=== PATIENT | male | born 1945 | race Caucasian/White ===

== ENCOUNTER 2019-06-10 05:43 | Inpatient (IN) | payer OTHER, BC ==
[2019-06-07 10:46] LABS: BASOPHILS # (AUTO) 0.1 K/uL (0.0-0.2); BASOPHILS % (AUTO) 0.9 % (0.0-2.0); EOSINOPHILS # (AUTO) 0.1 K/uL (0.0-0.4); EOSINOPHILS % (AUTO) 1.9 % (0.0-4.0); HEMATOCRIT 46.1 % (36-54); HEMOGLOBIN 15.2 g/dL (14.0-18.0); LYMPHOCYTES # (AUTO) 1.3 K/uL (1.0-5.5); LYMPHOCYTES % (AUTO) 22.5 % (20.5-51.5); MEAN CORPUSCULAR HEMOGLOBIN 29 pg (27-31); MEAN CORPUSCULAR HGB CONC 33 % (32-36); MEAN CORPUSCULAR VOLUME 89 fL (79.0-98.0); MONOCYTES # (AUTO) 0.5 K/uL (0.0-1.0); MONOCYTES % (AUTO) 8.4 % (1.7-9.3); NEUTROPHILS % (AUTO) 66.3 % (40.0-70.0); PLATELET COUNT (AUTO) 216 K/uL (130-430); RED BLOOD CELL COUNT(AUTO) 5.19 MIL/uL (4.2-6.2); RED CELL DISTRIBUTION WIDTH 13.1 % (9.0-15.0)
[2019-06-07 11:06] LABS: ANION GAP 5 (5-15); CALCIUM 9.5 mg/dL (8.4-11.0); CHLORIDE 100 mmol/L (98-107); CREATININE 1.22 mg/dL (0.55-1.30); GLUCOSE 88 mg/dL (70-99); POTASSIUM 4.4 mmol/L (3.5-5.1); SODIUM SERUM 136 mmol/L (136-145); UREA NITROGEN, BLOOD 16 mg/dL (8-21)
[2019-06-07 11:07] LABS: BILIRUBIN,URINE NEGATIVE (NEGATIVE); CLARITY/URINE CLEAR (CLEAR); COLOR,URINE YELLOW (YELLOW); GLUCOSE,URINE NEGATIVE (NEGATIVE); KETONES,URINE NEGATIVE (NEGATIVE); LEUKOCYTE ESTERASE ,URINE NEGATIVE (NEGATIVE); NITRITE, URINE NEGATIVE (NEGATIVE); PH,URINE 6.5 (5.0-8.0); PROTEIN URINE NEGATIVE (NEGATIVE); UROBILINOGEN,URINE 0.2 (0.2-1.0)
[2019-06-07 11:08] LABS: BLOOD, URINE TRACE (NEGATIVE)
[2019-06-07 11:11] LABS: INR 0.9 (0.80-1.20); PROTHROMBIN TIME 9.5 SECS (9.5-12.5)
[2019-06-07 11:17] LABS: BACTERIA,URINE RARE /HPF (None Seen); MUCUS,URINE 1+ /LPF (None Seen); RBC,URINE 0-3 /HPF (0-3); WBC,URINE 0-3 /HPF (0-3)
[~2019-06-10] VITALS: Ht 180.3 cm; Wt 95.3 kg
[~2019-06-10 05:43] MED LIST: PRAV40TA PO
[2019-06-10] MEDS ORDERED: ACETAMINOPHEN 500 MG TABLET ONE (06:20)
[2019-06-10] MEDS ORDERED: GABAPENTIN 300 MG CAPSULE ONE (06:20)
[2019-06-10] MEDS ORDERED: CELECOXIB 200 MG CAPSULE ONE (06:20)
[2019-06-10] MEDS ORDERED: oxyCODONE HCL 10 MG TAB.ER.12H PO ONE ×2 (06:21→07:00)
[2019-06-10] MEDS ORDERED: TRANEXAMIC ACID 650 MG TABLET ONE (06:21)
[2019-06-10] MEDS ORDERED: ACETAMINOPHEN 500 MG TABLET PO ONE (07:00)
[2019-06-10] MEDS ORDERED: GABAPENTIN 300 MG CAPSULE PO ONE (07:00)
[2019-06-10] MEDS ORDERED: NACL 0.9% 1,000 ML IV ONE (07:00)
[2019-06-10] MEDS ORDERED: CELECOXIB 200 MG CAPSULE PO ONE (07:00)
[2019-06-10] MEDS ORDERED: CEFAZOLIN 2 GM IVPB PREMIX 50 ML IV ONE (07:00)
[2019-06-10] MEDS ORDERED: TRANEXAMIC ACID 650 MG TABLET PO ONE (07:00)
[2019-06-10] MEDS ORDERED: POLYMYXIN 500,000/BACIT.10,000 UNITS in NS IRR 1 L IR ONE (07:12)
[2019-06-10] MEDS ORDERED: D5/0.45 NS 1,000 ML IV ONE (07:27)
[2019-06-10] MEDS ORDERED: MORPHINE SULFATE 10 MG/ML VIAL IM PRN (07:30)
[2019-06-10] MEDS ORDERED: ACETAMINOPHEN 325 MG TABLET PO PRN (07:30)
[2019-06-10] MEDS ORDERED: BISACODYL 10 MG/SUPPOSITORY RC PRN (07:30)
[2019-06-10] MEDS ORDERED: ROPIVACAINE HCL/PF 0.2% 200 ML INJ SCH (08:37)
[2019-06-10] MEDS ORDERED: ONDANSETRON HCL 4 MG/2 ML VIAL IVP PRN ×2 (08:45)
[2019-06-10] MEDS ORDERED: NALBUPHINE HCL 10 MG/ML AMP IVP PRN ×2 (08:45)
[2019-06-10] MEDS ORDERED: DIPHENHYDRAMINE INJ 50 MG/ML VIAL IVP PRN ×2 (08:45)
[2019-06-10] MEDS ORDERED: MORPHINE SULFATE 10MG/10ML PF AMP SP SCH (08:45)
[2019-06-10] MEDS ORDERED: NALOXONE HCL 0.4 MG/ML AMP (NARCAN) IVP PRN ×2 (08:45)
[2019-06-10] MEDS ORDERED: fentaNYL CITRATE/PF 100 MCG/2 ML AMP IVP PRN ×2 (08:45)
[2019-06-10] MEDS ORDERED: KETOROLAC TROMETHAMINE 60 MG/2 ML VIAL IM PRN (08:45)
[2019-06-10] MEDS ORDERED: RIVAROXABAN 10 MG TABLET PO SCH (09:00)
[2019-06-10] MEDS ORDERED: ROPIVACAINE HCL/PF 0.2% EPIDURAL 200 ML PLAST..BAG ONE (09:35)
[2019-06-10] MEDS ORDERED: TRANEXAMIC ACID 1,000 MG/10 ML VIAL IV ONE (09:35)
[2019-06-10] MEDS ORDERED: ROPIVACAINE HCL/PF 5 MG/ML 0.5% 30 ML VIAL ONE (09:35)
[2019-06-10] MEDS ORDERED: LR 1,000 ML IV.SOLN IV ONE (09:35)
[2019-06-10] MEDS ORDERED: BUPIVACAINE /PF 0.75% 10 ML VIAL INJ ONE (09:35)
[2019-06-10] MEDS ORDERED: MIDAZOLAM HCL 5 MG/ML VIAL (VERSED) IV ONE (09:35)
[2019-06-10] MEDS ORDERED: PROPOFOL 200MG/ 20ML VIAL (DIPRIVAN) IV ONE (09:35)
[2019-06-10] MEDS ORDERED: MORPHINE SULFATE 10MG/10ML PF AMP ONE (09:35)
[2019-06-10] MEDS ORDERED: VANCOMYCIN HCL 1000 MG/VIAL IV ONE (09:35)
--- NOTE | 2019-06-10 10:30 | NUR ---
INITIAL NOTE RECEIVED PT IN BED, NO S/S OF DISTRESS OR SOB NOTED, PT HAS NO C/O PAIN AT THIS TIME, PT IN STABLE CONDITION, PY AAOX4, VERBAL. PT HAS AN IV CATHETER PATENT, NO SIGNS OF INFECTION OR INFILTRATION NOTED, SALINE LOCK. PT HAS A DRESSING ON LEFT KNEE CLEAN AND DRY, ON Q PUMP AT 8 ML/HR, PT ABLE TO MOVE TOES ON LEFT FOOT, SENSATION PRESENT, CAPILLARY REFILL LESS THAN 3 SECONDS, PULSE PALPABLE, ABLE TO WIGGLE TOES, NO PARALYSIS OR TINGLING PER PT. EDUCATED PT ON USE OF INCENTIVE SPIROMETER, PT TO USE 10 TIMES AN HOUR WHILE AWAKE, PT VERBALIZED UNDERSTANDING, PT AT 1500ML. PT HAS POLAR CARE IN PLACE, TRAPEZE FOR BED MOBILITY. BED AT LOWEST POSITION, CALL LIGHT WITHIN REACH, WILL CONTINUE TO MONITOR PT FOR ANY CHANGES, FALL AND SAFETY PRECAUTIONS IN PLACE. AT BEDSIDE. F/C DRAINING VIA GRAVITY.
[2019-06-10 10:39] VITALS: BP_SYST 124
[2019-06-10 10:42] VITALS: BP_SYST 124
[2019-06-10] MEDS: CEFAZOLIN 1 GM IVPB PREMIX 50 ML IV SCH ×2 (15:34→23:25)
[2019-06-10 16:30] VITALS: BP_SYST 124
--- NOTE | 2019-06-10 16:30 | NUR ---
ROUNDS PT IN BED, NO S/S OF DISTRESS OR SOB NOTED, PT HAS NO C/O PAIN AT THIS TIME, PT IN STABLE CONDITION, PT RESTING COMFORTABLY. WILL CONTINUE TO MONITOR PT FOR ANY CHANGES. AT BEDSIDE.
[2019-06-10] MEDS: RIVAROXABAN 10 MG TABLET PO SCH (17:32)
--- NOTE | 2019-06-10 18:15 | NUR ---
NAUSEA PT VOMITED X1, ABOUT 20CC OF YELLOWISH VOMIT, OFFERED PATIENT ZOFRAN PRN IVP FOR NAUSEA BUT PT REFUSED, PT STATED HE WANTED A SPRITE INSTEAD AND FELT BETTER, WILL CONTINUE TO MONITOR PT FOR ANY CHANGES.
--- NOTE | 2019-06-10 18:35 | NUR ---
CLOSING NOTE PT IN BED, NO S/S OF DISTRESS OR SOB NOTED, PT HAS NO C/O PAIN AT THIS TIME, PT IN STABLE CONDITION, PY AAOX4, VERBAL. PT HAS AN IV CATHETER PATENT, NO SIGNS OF INFECTION OR INFILTRATION NOTED, SALINE LOCK. PT HAS A DRESSING ON LEFT KNEE CLEAN AND DRY, ON Q PUMP AT 8 ML/HR, PT ABLE TO MOVE TOES ON LEFT FOOT, SENSATION PRESENT, CAPILLARY REFILL LESS THAN 3 SECONDS, PULSE PALPABLE, ABLE TO WIGGLE TOES, NO PARALYSIS OR TINGLING PER PT. EDUCATED PT ON USE OF INCENTIVE SPIROMETER, PT VERBALIZED UNDERSTANDING. PT HAS POLAR CARE IN PLACE, TRAPEZE FOR BED MOBILITY. BED AT LOWEST POSITION, CALL LIGHT WITHIN REACH, WILL ENDORSE CARE OF PT TO INCOMING NURSE, FALL AND SAFETY PRECAUTIONS IN PLACE. AT BEDSIDE. F/C DRAINING VIA GRAVITY.
--- NOTE | 2019-06-10 19:30 | NUR ---
Pt is fully awake, alert and oriented x4. Left knee dressing is dry and intact with Polar care in place. Neurovascular checks to BLE are WNL. CPM is on at 0 to 60 degrees and well tolerated by pt. On Q pump is infusing well in left thigh at 8ml/hr with the site dry and intact. No c/o pain, numbness or tingling sensation. Pt was instructed to use IS 10x Q 1hr WA and pt verbalized understanding. Pt's IS usage is up to 3000ml. IV site in LH is without any signs of infiltration. Rabago Cath to gravity drainage is draining clear yellowish urine. Fall and safety precautions are in place. Call light is with pt and bed alarm is on. Bed is in the lowest and locked positions. Pt was instructed to call for assistance as needed and pt verbalized understanding.
[2019-06-10 20:00] VITALS: BP_SYST 142
--- NOTE | 2019-06-10 20:00 | NUR ---
CPM machine was removed from left knee and placed on a chair in pt's room. Left leg was elevated on a pillow away from pt's left knee. Pt was instructed not to place a pillow underneath his left knee and pt verbalized understanding. Call light is with pt and bed alarm is on.
[2019-06-10] MEDS: HYDROcodone/ACETAMIN 7.5-325 MG TAB PO PRN (21:25)
--- NOTE | 2019-06-10 21:25 | NUR ---
[place] 7.5/325mg 1 tablet was given po for c/o 4/10 left knee pain. Left leg remains elevated on a pillow. On Q pump with Ropivacaine is infusing well in left thigh at 8ml/hr without any leakage noted at the site. Call light is with pt and bed alarm is on.
--- NOTE | 2019-06-10 23:00 | NUR ---
Pt is resting quietly in bed. Fall and safety precautions are in place.
--- NOTE | 2019-06-10 23:08 | NUR ---
CONSULTATION PAGED/CALLED Reason for Consultation: HOSPITALIST Person Who was Notified: MARYBETH Consulting Physician: KAYE Briseno Specialty: Ordering Physician: Harmony GALLARDO
--- NOTE | 2019-06-11 01:00 | NUR ---
Pt is not in any distress at this time. Call light is with pt and bed alarm is on. Left knee dressing is dry and intact.
[2019-06-11 01:19] VITALS: BP_SYST 126
--- NOTE | 2019-06-11 03:00 | NUR ---
Pt is sleeping without any distress noted. Saline lock is intact in LH. all light is with pt and bed alarm is on.
--- NOTE | 2019-06-11 05:00 | NUR ---
Pt is sleeping comfortably in bed. Fall and safety precautions are in place.
[2019-06-11] MEDS: OXYCODONE/ACETAMINOPHEN *10*mg/325 mg TABLET PO PRN ×3 (06:12→18:06)
--- NOTE | 2019-06-11 06:12 | NUR ---
Percocet 10/325mg 1 tablet was given po for c/o left knee pain. Left knee dressing is with small amount of old blood stain. No evidence of active bleeding noted. Polar care is in place and On Q pump with Ropivacaine is infusing well in left thigh. Saline lock in LH is without any signs of infiltration. All pt's needs were attended to. Call light is with pt and bed alarm is on. Will endorse to day shift nurse.
--- NOTE | 2019-06-11 08:00 | NUR ---
NOTE Pt denies any SOB/resp distress or severe pain/discomfort in left leg. Dressing has old blood on surgical dressing. Neuro checks on left leg WNL. IV in left hand intact and patent. Call light within reach.
--- NOTE | 2019-06-11 08:00 | NUR ---
Note Pt resting in bed - HOB at 45'.
[2019-06-11 08:05] VITALS: BP_SYST 132
[2019-06-11] MEDS: RIVAROXABAN 10 MG TABLET PO SCH (08:48)
[2019-06-11] MEDS: HYDROcodone/ACETAMIN 7.5-325 MG TAB PO PRN (08:49)
--- NOTE | 2019-06-11 09:11 | NUR ---
Nutrition Update Teo Scale 18 noted. Pt admitted for unilateral primary osteoarthritis, L knee. Diet: regular BMI: 29.3 kg/m2 RD to follow per nutrition care standards.
--- NOTE | 2019-06-11 10:00 | NUR ---
Note Dr Wolf at bedside doing assessment and gave pt prescription for home medications. Prescription at bedside table. Copy made and put in chart. Pt has Polar ice on left knee and Q-pump on left knee all shift. Call light within reach.
[2019-06-11 11:13] VITALS: BP_SYST 144
--- NOTE | 2019-06-11 12:05 | NUR ---
Note Pt worked with PT and sat up in recliner for an hour and now back in bed with CPM on left leg at 65'. No needs noted at this time. Pt's has been at bedside for 1-2 hours. Call light within reach.
--- NOTE | 2019-06-11 12:40 | NUR ---
Note Dr Wolf at bedside again, was notified of slight bleeding on back of calf on left leg.
--- NOTE | 2019-06-11 15:10 | NUR ---
Discharge Planning: DCP faxed pt referral to [facility] (f [phone] p [phone]) DCP to follow up
[2019-06-11 15:26] VITALS: BP_SYST 128
--- NOTE | 2019-06-11 18:20 | NUR ---
Note Pt has his left leg in CPM at 0-65' all shift since 1145am. No SOB/resp distress or severe pain/discomfort noted at this time. Pt was checked q1' and PRN all shift for needs and care. IV in left hand intact and patent at this time. No needs noted at this time. Left leg/knee dressing intact and there is still some bleeding from dressing that Dr Wolf is aware of. Dr Landers called and checked on pt's status. No needs noted at this time. Call light within reach. Pt's at bedside at this time assisting pt with care and needs.
--- NOTE | 2019-06-11 18:30 | NUR ---
Note Pt has polar ice and Q-pump on left knee all shift. Pt requested and received Percocet PO for pain at 1805 and received medication at that time as well.
--- NOTE | 2019-06-11 19:30 | NUR ---
Pt was received lying in bed fully awake, alert and oriented x4. Left knee dressing is dry and intact with Polar care in place. Neurovascular checks to BLE are WNL. CPM is on at 0 to 65 degrees and will removed at 1999 per PT's recommendation. On Q pump is infusing well in left thigh at 8ml/hr with the site dry and intact. No c/o numbness or tingling sensation. Pt was instructed to use IS 10x Q 1hr WA and pt verbalized understanding. Pt's IS usage is up to 3500ml. Saline lock in LH is without any signs of infiltration. Rabago Cath to gravity drainage is draining clear yellowish urine. Fall and safety precautions are in place. Call light is with pt and bed alarm is on. Bed is in the lowest and locked positions. Pt was instructed to call for assistance as needed and pt verbalized understanding.
[2019-06-11 20:00] VITALS: BP_SYST 140
--- NOTE | 2019-06-11 20:23 | NUR ---
Morphine 10mg was given IM for c/o 9/10 left knee pain. Call light is with pt and bed alarm is on. Pt was instructed to call for assistance as needed and pt verbalized understanding.
--- NOTE | 2019-06-11 22:00 | NUR ---
Patient is resting without any distress. Left leg remains elevated on pillow. Call light is with patient and the bed alarm is on.
[2019-06-12] VITALS: BP_SYST 132
--- NOTE | 2019-06-12 | NUR ---
Neurovascular checks to BLE are WNL. No c/o pain, numbness, or tingling. Call light is with patient and the bed alarm is on. LLE remains elevated on a pillow.
--- NOTE | 2019-06-12 02:00 | NUR ---
Patient is sleeping comfortably in bed. Fall and safety precautions are in place.
[2019-06-12] MEDS: OXYCODONE/ACETAMINOPHEN *10*mg/325 mg TABLET PO PRN ×3 (02:29→13:18)
--- NOTE | 2019-06-12 02:29 | NUR ---
Percocet 10/325mg 1 tablet was given po for c/o 9/10 left knee pain. Assisted patient to move up in bed. Call light is with patient and bed alarm is on.
--- NOTE | 2019-06-12 04:00 | NUR ---
Patient was resting quietly in bed. Neurovascular checks to BLE WNL. No signs of distress were present. Fall and safety precautions were in place.
--- NOTE | 2019-06-12 05:24 | NUR ---
Removed patient's Rabago catheter. Rabago was intact. Urinal was placed at bedside.
--- NOTE | 2019-06-12 06:00 | NUR ---
Patient was resting in bed. No c/o of pain or discomfort at this time. All patient's needs were attended to. Will endorse to day shift nurse.
[2019-06-12 08:00] VITALS: BP_SYST 129
--- NOTE | 2019-06-12 08:21 | NUR ---
RN INITIAL NOTES RECEIVED PATIENT IN BED ALERT X 4 NO DISTRESS NO PAIN A THIS TIME , LEFT KNEE CONNECTED TO [employer] CUBE MACHINE AND TOLERATING , IV HL AND PATIENT IS READY FOR HIS PT TODAY , NO PROBLEM WITH POST VOIDING , ABLE TO URINATE X 2
[2019-06-12] MEDS: RIVAROXABAN 10 MG TABLET PO SCH (09:07)
--- NOTE | 2019-06-12 09:13 | NUR ---
Discharge Planning: [facility] (f [phone] p [phone]) providing DME; CPM, patient has commode. [facility] ([phone] p [phone]) accepted patient. DCP made patient aware and gave phone numbers of [facility] and [facility].
--- NOTE | 2019-06-12 10:00 | NUR ---
ROUNDS PATIENT MEDICATED WITH PAIN MEDS FOR THE AMBULATION WITH PT
[2019-06-12 10:15] LABS: BASOPHILS # (AUTO) 0.1 K/uL (0.0-0.2); BASOPHILS % (AUTO) 0.5 % (0.0-2.0); EOSINOPHILS % (AUTO) 0.4 % (0.0-4.0); HEMATOCRIT 39.7 % (36-54); HEMOGLOBIN 13.3 g/dL (14.0-18.0); LYMPHOCYTES # (AUTO) 1.4 K/uL (1.0-5.5); MEAN CORPUSCULAR HEMOGLOBIN 29 pg (27-31); MEAN CORPUSCULAR HGB CONC 34 % (32-36); MEAN CORPUSCULAR VOLUME 88 fL (79.0-98.0); MONOCYTES # (AUTO) 1.8 K/uL (0.0-1.0); MONOCYTES % (AUTO) 14.5 % (1.7-9.3); NEUTROPHILS # (AUTO) 9.1 K/uL (1.8-7.7); NEUTROPHILS % (AUTO) 73.6 % (40.0-70.0); PLATELET COUNT (AUTO) 181 K/uL (130-430); RED BLOOD CELL COUNT(AUTO) 4.53 MIL/uL (4.2-6.2); RED CELL DISTRIBUTION WIDTH 12.9 % (9.0-15.0); WHITE BLOOD COUNT (AUTO) 12.3 K/uL (4.8-10.8)
[2019-06-12 10:34] LABS: ANION GAP 9 (5-15); CALCIUM 9.5 mg/dL (8.4-11.0); CHLORIDE 98 mmol/L (98-107); CREATININE 1.29 mg/dL (0.55-1.30); GLUCOSE 117 mg/dL (70-99); POTASSIUM 3.8 mmol/L (3.5-5.1); SODIUM SERUM 132 mmol/L (136-145); UREA NITROGEN, BLOOD 12 mg/dL (8-21)
[2019-06-12 11:24] VITALS: BP_SYST 117
--- NOTE | 2019-06-12 12:00 | NUR ---
DC ORDER/ ORTHO DR GALLARDO PATIENT LEFT KNEE OPENED AND CHANGED BY DR GALLARDO WITH NEW 4X4 GAUZE AND 6 INCHES MEÑO WRAP INCISION AND LUCI INTACT NO SIGN OF INFECTION AND REDNESS , MD DISCUSSED WITH PATIENT CONT WITH PAIN MGT, CONT WITH PT REHAB AND TO FOLLOW UP WITH ORTHO DR IN 2 WEEKS , PER AND PATIENT THEY WILL CALL IN AM FOR THE APPT IN [address] GALLARDO THE DRESSING IS ENOUGH NOT THE WAY HE DID IT .
[2019-06-12 12:06] VITALS: BP_SYST 117
--- NOTE | 2019-06-12 13:29 | NUR ---
PHYSICAL THERAPY CO-SIGN The Physical Therapy Progress Notes documented by Benzene Washer have been reviewed. Reviewed/Co-Signed by: Geronimo Jackman PT Documentation Done by: HUGO EVANS PTA Addendum: 06/12/19 at 1330 by Geronimo Jackman PT Amended: Links added.
--- NOTE | 2019-06-12 13:30 | NUR ---
D/C Patient Patient given medication reconciliation form and D/C instructions. Exit Care provided. Patient verbalized understanding. discussed with patient the results and treatment provided and to follow up with DR Aiden Wolf in 2 weeks , said she will call in am for the appt, also to call the PCP in 1 week for the follow up all instruction given and both patient and aware ,. Ambulatory with steady gait for discharge to home. Patient in stable condition, ID band removed. IV catheter removed, intact and dressing applied, no active bleeding. Rx of Xarelto and [place] was given to the yesterday and already in the house , patient is aware of the side effects given. Patient educated on pain management.asssisted with staff to patient car with safety /falll precaution advised and fully understood All belongings sent with patient.
--- NOTE | 2019-06-12 13:30 | NUR ---
PHYSICAL THERAPY CO-SIGN The Physical Therapy Progress Notes documented by Systems Analysis Manager have been reviewed. Reviewed/Co-Signed by: Geronimo Jackman PT Documentation Done by: HUGO EVANS PTA Addendum: 06/12/19 at 1330 by Geronimo Jackman PT Amended: Links added.
--- NOTE | 2019-06-17 11:50 | NUR ---
Discharge Planning: MOVEMAN to follow up from phone call msg. from D/C'd pt. who stated noone from has contacted him. MOVEMAN looked up notes and called home health agency and Brenda stated she had been in contact with pt. since. . Brenda stated an Rn is about to arrive at pt.s home this morning and pt. is aware of this. MOVEMAN will call pt to confirm. MOVEMAN Called ptGeoff Almanzar who stated the Rn was currently at home to provide services. MOVEMAN will remain available as needed.
--- NOTE | 2019-06-18 10:16 | NUR ---
DISCHARGE FOLLOW UP PHONE CALL ANASTASIYA/ MALIA HYMAN PHONED PATIENT, . SPOKE TO PATIENT, HE STATED HE IS FEELING A LOT BETTER, EVERY DAY HE IS PROGRESSING. HE UNDERSTOOD HIS DISCHARGE INSTRUCTIONS. ALREADY FILLED HIS PRESCRIPTION. HAS ALREADY FOLLOWED UP WITH HIS PCP THE DAY AFTER HE DISCHARGE 06/13/19. WILL HAVE AN APPOINTMENT WITH ON JUNE 22. HE HAS NO QUESTIONS OR CONCERNS. HE WILL CALL THE HOSPITAL IF HE HAS QUESTIONS IN THE FUTURE.
== END 2019-06-12 13:30 | disposition home health service (06) | DRG 470 ==
LOC: SMU 05:43
PROVIDERS: ADMIT Orthopaedic Surgery; ATTEND Orthopaedic Surgery
PROC: 0SRD0J9 Replacement of Left Knee Joint with Synthetic Substitute, Cemented, Open Approach (ICD-10-PCS; principal; 2019-06-10 07:30)
DX: M17.12 Unilateral primary osteoarthritis, left knee (principal); G89.29 Other chronic pain; E78.5 Hyperlipidemia, unspecified; Z96.659 Presence of unspecified artificial knee joint
CPT/HCPCS: 36415; 80048; 81000-TC; 85025; 85610-TC; 85730-TC; 87081; 88305; 88311; 94010; 97039; 97110-GP; 97116-GP; 97530-GP; C1713; C1776; J0690; J2250; J2270; J2274; J2704; J3370; J3490; J7120

== ENCOUNTER 2020-01-07 10:28 | Day surgery (SDC) | payer OTHER, BC, SELFPAY ==
[2020-01-03 09:12] LABS: BASOPHILS % (AUTO) 0.9 % (0.0-2.0); EOSINOPHILS # (AUTO) 0.1 K/uL (0.0-0.4); HEMATOCRIT 43.6 % (36-54); HEMOGLOBIN 14.2 g/dL (14.0-18.0); LYMPHOCYTES # (AUTO) 1.4 K/uL (1.0-5.5); LYMPHOCYTES % (AUTO) 29.6 % (20.5-51.5); MEAN CORPUSCULAR HEMOGLOBIN 28 pg (27-31); MEAN CORPUSCULAR HGB CONC 33 % (32-36); MEAN CORPUSCULAR VOLUME 87 fL (79.0-98.0); MONOCYTES # (AUTO) 0.5 K/uL (0.0-1.0); MONOCYTES % (AUTO) 9.8 % (1.7-9.3); NEUTROPHILS # (AUTO) 2.7 K/uL (1.8-7.7); NEUTROPHILS % (AUTO) 56.7 % (40.0-70.0); PLATELET COUNT (AUTO) 210 K/uL (130-430); RED BLOOD CELL COUNT(AUTO) 4.99 MIL/uL (4.2-6.2); RED CELL DISTRIBUTION WIDTH 13.9 % (9.0-15.0); WHITE BLOOD COUNT (AUTO) 4.8 K/uL (4.8-10.8)
[2020-01-03 09:17] LABS: BILIRUBIN,URINE NEGATIVE (NEGATIVE); BLOOD, URINE NEGATIVE (NEGATIVE); CLARITY/URINE CLEAR (CLEAR); COLOR,URINE YELLOW (YELLOW); GLUCOSE,URINE NEGATIVE (NEGATIVE); KETONES,URINE NEGATIVE (NEGATIVE); LEUKOCYTE ESTERASE ,URINE NEGATIVE (NEGATIVE); NITRITE, URINE NEGATIVE (NEGATIVE); PROTEIN URINE NEGATIVE (NEGATIVE); UROBILINOGEN,URINE 0.2 (0.2-1.0)
[2020-01-03 09:25] LABS: ANION GAP 6 (5-15); CALCIUM 9.1 mg/dL (8.4-11.0); CHLORIDE 102 mmol/L (98-107); CREATININE 1.06 mg/dL (0.55-1.30); GLUCOSE 105 mg/dL (70-99); POTASSIUM 4.6 mmol/L (3.5-5.1); SODIUM SERUM 139 mmol/L (136-145); UREA NITROGEN, BLOOD 17 mg/dL (8-21)
[2020-01-03 09:30] LABS: PROTHROMBIN TIME 9.6 SECS (9.5-12.5)
[~2020-01-07] VITALS: Ht 177.8 cm; Wt 95.3 kg
[2020-01-07] MEDS ORDERED: LR 1,000 ML IV SCH (10:54)
[2020-01-07] MEDS ORDERED: ONDANSETRON HCL 4 MG/2 ML VIAL IVP PRN (11:00)
[2020-01-07] MEDS ORDERED: HYDROmorphone 1 MG INJ. 1 MG/ML AMPUL IVP PRN (11:00)
[2020-01-07] MEDS ORDERED: MORPHINE 4 MG/ML INJ. SYRINGE IVP PRN (11:00)
[2020-01-07] MEDS ORDERED: ROCURONIUM BROMIDE 10 MG/ML (ZEMURON) ONE (12:03)
[2020-01-07] MEDS ORDERED: DEXAMETHASONE SOD PHOSPHATE 4 MG/ML VIAL ONE (12:03)
[2020-01-07] MEDS ORDERED: PROPOFOL 200MG/ 20ML VIAL (DIPRIVAN) IV ONE (12:03)
[2020-01-07] MEDS ORDERED: WATER FOR IRRIGATION,STERILE 1,000 ML IRRIG.SOLN IR ONE (12:03)
[2020-01-07] MEDS ORDERED: SUCCINYLCHOLINE CHLORIDE 20 MG/ML(QUELICIN) ONE (12:03)
[2020-01-07] MEDS ORDERED: NEOSTIGMINE METHYLSULFATE 1 MG/ML, 10 ML VIAL ONE (12:03)
[2020-01-07] MEDS ORDERED: LR 1,000 ML IV.SOLN IV ONE (12:03)
[2020-01-07] MEDS ORDERED: GLYCOPYRROLATE 0.2 MG/ML VIAL ONE (12:03)
[2020-01-07] MEDS ORDERED: ONDANSETRON HCL 4 MG/2 ML VIAL ONE (12:03)
[2020-01-07] MEDS ORDERED: DESFLURANE 15 MIN GAS INH ONE (12:03)
[2020-01-07 13:01] VITALS: BP_SYST 138
--- NOTE | 2020-01-10 10:05 | NUR ---
Patient was called x 3. Today, he was notified his "Not Detected" COVID-19 test Laboratory Results and instructed on preventive measure practices to follow ([facility] [employer]).
== END 2020-01-07 13:30 | disposition home or self-care (01) ==
LOC: SDS 10:28 → SMU 10:28 → SDS 13:30
PROVIDERS: ATTEND Orthopaedic Surgery
DX: M65.331 Trigger finger, right middle finger (principal); M19.90 Unspecified osteoarthritis, unspecified site; Z79.899 Other long term (current) drug therapy; Z79.01 Long term (current) use of anticoagulants
CPT/HCPCS: 36415; 71046-TC; 80048; 81003; 85025; 85610-TC; 85730-TC; 93005; J0330; J1100; J2405; J2704; J2710; J3490; J7120

== ENCOUNTER 2022-05-02 07:30 | Inpatient (IN) | payer OTHER, BC ==
[~2022-05-02] VITALS: Ht 177.8 cm; Wt 94.8 kg
[2022-05-03 12:25] LABS: BILIRUBIN,URINE NEGATIVE (NEGATIVE); BLOOD, URINE NEGATIVE (NEGATIVE); CLARITY/URINE CLEAR (CLEAR); COLOR,URINE YELLOW (YELLOW); GLUCOSE,URINE NEGATIVE (NEGATIVE); KETONES,URINE NEGATIVE (NEGATIVE); LEUKOCYTE ESTERASE ,URINE NEGATIVE (NEGATIVE); NITRITE, URINE NEGATIVE (NEGATIVE); PROTEIN URINE NEGATIVE (NEGATIVE); UROBILINOGEN,URINE 0.2 (0.2-1.0)
[2022-05-04] MEDS ORDERED: CEFAZOLIN SOD 2 GM in D5W 50 ML IV ONE (07:00)
[2022-05-04] MEDS ORDERED: CEFAZOLIN 2 GM IVPB PREMIX 50 ML IV ONE ×2 (08:05→10:46)
[2022-05-04] MEDS ORDERED: NS 1000 ML IV.SOLN IV ONE (10:46)
[2022-05-04] MEDS ORDERED: TRANEXAMIC ACID 1,000 MG/10 ML VIAL IV ONE (10:46)
[2022-05-04] MEDS ORDERED: BUPIVACAINE /DEX PF 0.75% SPINAL 2 ML AMP INJ ONE (10:46)
[2022-05-04] MEDS ORDERED: WATER FOR IRRIGATION,STERILE 1,000 ML IRRIG.SOLN IR ONE (10:46)
[2022-05-04] MEDS ORDERED: PROPOFOL 200MG/ 20ML VIAL (DIPRIVAN) IV ONE (10:46)
[2022-05-04] MEDS ORDERED: ePHEDrine sulfate 50 MG/ML VIAL IVP ONE (10:46)
[2022-05-04] MEDS ORDERED: ONDANSETRON HCL 4 MG/2 ML VIAL IVP ONE (10:46)
[2022-05-04] MEDS ORDERED: MORPHINE SULFATE 10MG/10ML PF AMP EP ONE (10:46)
[2022-05-04] MEDS ORDERED: MIDAZOLAM HCL 5 MG/5 ML VIAL IVP ONE (10:46)
[2022-05-04] MEDS ORDERED: LIDOCAINE 2%, 20 ML MDV INJ ONE (10:46)
[2022-05-04] MEDS ORDERED: KETOROLAC TROMETHAMINE 30 MG VIAL IVP ONE (10:46)
[2022-05-04] MEDS ORDERED: NS 100 ML BAG IV ONE ×2 (10:46)
[2022-05-04] MEDS ORDERED: LR 1,000 ML IV.SOLN IV ONE ×2 (10:46)
[2022-05-04] MEDS ORDERED: HYDROmorphone 1 MG/ML INJ. CARTRIDGE IVP PRN ×5 (11:00→11:45)
[2022-05-04] MEDS ORDERED: oxyCODONE HCL 5 MG TABLET PO PRN ×2 (11:00)
[2022-05-04] MEDS ORDERED: traMADol HCL HCL 50 MG TABLET (ULTRAM) PO PRN (11:00)
[2022-05-04] MEDS ORDERED: ACETAMINOPHEN I.V. 1000 MG 0 ML IV ONE (11:41)
[2022-05-04] MEDS ORDERED: hydrALAZINE HCL 20 MG/ML VIAL IVP PRN (11:45)
[2022-05-04] MEDS ORDERED: METOCLOPRAMIDE HCL 10 MG/2 ML VIAL IVP PRN ×2 (11:45→13:30)
[2022-05-04] MEDS ORDERED: MEPERIDINE HCL/PF 25 MG/ML DISP.SYRIN IVP PRN (11:45)
[2022-05-04] MEDS ORDERED: DIPHENHYDRAMINE INJ 50 MG/ML VIAL IVP PRN (11:45)
[2022-05-04] MEDS ORDERED: MIDAZOLAM HCL 2 MG/2 ML VIAL (VERSED) IVP PRN (11:45)
[2022-05-04] MEDS ORDERED: NALOXONE HCL 0.4 MG/ML AMP (NARCAN) IVP PRN ×4 (11:45→13:30)
[2022-05-04] MEDS ORDERED: ONDANSETRON HCL 4 MG/2 ML VIAL IVP PRN (11:45)
[2022-05-04] MEDS ORDERED: LR 1,000 ML IV SCH (11:45)
[2022-05-04] MEDS ORDERED: ACETAMINOPHEN I.V. 1000 MG 100 ML IV ONE (12:16)
[2022-05-04] MEDS ORDERED: AMLO10TA88 PO ×2 (12:44)
[2022-05-04] MEDS ORDERED: HYDR25TA4 PO (12:44)
[2022-05-04] MEDS ORDERED: GABA-529 PO (12:44)
[2022-05-04] MEDS ORDERED: PRAV40TA63 PO (12:44)
[2022-05-04] MEDS ORDERED: LISI40TA13 PO (12:44)
[2022-05-04] MEDS ORDERED: LACTULOSE 20 GM/30 ML UDC PO PRN (13:30)
[2022-05-04] MEDS ORDERED: BISACODYL 10 MG/SUPPOSITORY RC PRN (13:30)
[2022-05-04] MEDS ORDERED: DIPHENHYDRAMINE HCL 25 MG CAPSULE PO PRN (13:30)
[2022-05-04] MEDS: ACETAMINOPHEN 500 MG TABLET PO SCH ×2 (14:00→22:40)
[2022-05-04] MEDS: KETOROLAC TROMETHAMINE 10 MG TABLET (TORADOL) PO SCH ×2 (14:00→22:40)
[2022-05-04 14:45] VITALS: BP_SYST 121; BP_SYST 127
--- NOTE | 2022-05-04 14:45 | NUR ---
ADMISSION: PATIENT ADMITTED TO ROOM 122A. AAOX4 ABLE TO MAKE NEEDS KNOWN. PAIN TO THE R KNEE 4/10 ACHING BUT TOLERABLE. DRESSING IS C/D/I AND POLAR ICE IS IN PLACE. IV TO THE LW 20 WITH GOOD BLOOD RETURN. EXPLAINED POC AND HE VERBALIZED UNDERSTANDING. BED IN LOW AND LOCK POSITION. CALL LIGHT, BEDSIDE TABLE, AND URINAL WITHIN REACH. STABLE CONDITION.
[2022-05-04 15:00] VITALS: BP_SYST 138
--- NOTE | 2022-05-04 15:00 | NUR ---
OOB: EDUCATE PATIENT TO CALL THE NURSE WHEN OOB TO PREVENT FALL. AT THIS TIME, PATIENT NEEDS TO USE THE URINAL. HOWEVER, IF PATIENT NEEDS TO OOB DUE TO HAVING A BOWEL MOVEMENT, THE NURSE CAN ASSIST W/ PATIENT AMBULATE (IF TOLERABLE AND ABLE). PATIENT NEEDS TO DANGLE FIRST IN THE BED. PHYSIAL THERAPY WILL SEE THE PATIENT IN AM. PATIENT VERBALIZED UNDERSTANDING.
--- NOTE | 2022-05-04 15:06 | NUR ---
Discharge Planning: DCP faxed pt referral to [facility] [phone] DCP to follow up Addendum: 05/04/22 at 1645 by Maritza Grady DP to [facility] [phone] accepted patient, pending PT notes.
[2022-05-04 15:15] VITALS: BP_SYST 126
[2022-05-04 15:30] VITALS: BP_SYST 123
[2022-05-04] MEDS: ceFAZolin SODIUM 2 GM in D5W 50 ML IV SCH ×2 (15:55→22:42)
[2022-05-04 16:50] VITALS: BP_SYST 121
--- NOTE | 2022-05-04 18:00 | NUR ---
I AND O'S PATIENT HAS NOT URINATED SINCE ADMISSION. DENIES BLADDER DISCOMFORT OR URGENT TO URINATE. PER PATIENT HE WILL TRY LATER. URINAL AT THE BEDSIDE.
--- NOTE | 2022-05-04 18:50 | NUR ---
CLOSING NOTES: PATIENT IS RESTING IN BED QUIETLY EATING AND WATCHING TV. NO ADDITIONAL DISTRESS NOTED. ALL NEEDS MET. STABLE CONDITION.
[2022-05-04 20:30] VITALS: BP_SYST 101
[2022-05-04] MEDS: SENNOSIDES/DOCUSATE SODIUM 1 TAB TABLET(SENOKOT-S) PO SCH (21:00)
[2022-05-05 00:30] VITALS: BP_SYST 107
[2022-05-05 07:09] LABS: ANION GAP 8 (5-15); CALCIUM 9.3 mg/dL (8.4-11.0); CHLORIDE 101 mmol/L (98-107); CREATININE 1.56 mg/dL (0.55-1.30); GLUCOSE 125 mg/dL (70-99); POTASSIUM 4.8 mmol/L (3.5-5.1); UREA NITROGEN, BLOOD 23 mg/dL (8-21)
[2022-05-05 07:14] LABS: BASOPHILS % (AUTO) 0.1 % (0.0-2.0); HEMATOCRIT 35.4 % (36-54); LYMPHOCYTES # (AUTO) 0.6 K/uL (1.0-5.5); LYMPHOCYTES % (AUTO) 4.7 % (20.5-51.5); MEAN CORPUSCULAR VOLUME 86 fL (79.0-98.0); MONOCYTES # (AUTO) 0.7 K/uL (0.0-1.0); MONOCYTES % (AUTO) 5.5 % (1.7-9.3); NEUTROPHILS # (AUTO) 12.2 K/uL (1.8-7.7); NEUTROPHILS % (AUTO) 89.7 % (40.0-70.0); PLATELET COUNT (AUTO) 189 K/uL (130-430); RED CELL DISTRIBUTION WIDTH 13.9 % (9.0-15.0); WHITE BLOOD COUNT (AUTO) 13.6 K/uL (4.8-10.8)
[2022-05-05] MEDS: ACETAMINOPHEN 500 MG TABLET PO SCH (07:22)
[2022-05-05] MEDS: ceFAZolin SODIUM 2 GM in D5W 50 ML IV SCH (07:23)
[2022-05-05] MEDS: KETOROLAC TROMETHAMINE 10 MG TABLET (TORADOL) PO SCH (07:24)
[2022-05-05 08:00] VITALS: BP_SYST 129
[2022-05-05] MEDS ORDERED: ASA81 PO (08:01)
[2022-05-05] MEDS: SENNOSIDES/DOCUSATE SODIUM 1 TAB TABLET(SENOKOT-S) PO SCH (08:33)
[2022-05-05] MEDS ORDERED: PRAVASTATIN SODIUM 20 MG TABLET (PRAVACHOL) PO SCH (09:00)
[2022-05-05] MEDS ORDERED: ATORVASTATIN 10 MG TABLET PO SCH (09:00)
[2022-05-05] MEDS ORDERED: ASPIRIN 81 MG TAB.CHEW PO SCH (09:00)
[2022-05-05] MEDS ORDERED: amLODIPine BESYLATE 10 MG TABLET PO SCH (09:00)
[2022-05-05] MEDS ORDERED: HYDROCHLOROTHIAZIDE 25 MG TABLET (HCTZ) PO SCH (09:00)
[2022-05-05] MEDS ORDERED: DEXAMETHASONE 1 MG TABLET (DECADRON) PO SCH (09:00)
[2022-05-05] MEDS ORDERED: GABAPENTIN 100 MG CAPSULE PO SCH (09:00)
[2022-05-05] MEDS ORDERED: lisinopriL 20 MG TABLET PO SCH (09:00)
--- NOTE | 2022-05-05 09:37 | NUR ---
INDEPENDENT BED MOBILITY; SUPERVISED TRANSFERS AND GAIT WITH THE [facility]. NURSING MAY ASSIST THE PATIENT WITH TRANSFERS AND GAIT. USE THE [facility].
--- NOTE | 2022-05-05 10:05 | NUR ---
Discharge Planning: DCP followed up with referral to [facility] [phone] accepted nurse will visit tomorrow and PT will see Monday. Addendum: 05/05/22 at 1051 by Maritza Grady DP DCP faxed [facility] [phone] updated clinical. DC order and PT notes.
[2022-05-05 10:43] VITALS: BP_SYST 118
[2022-05-05] MEDS ORDERED: CELECOXIB 200 MG CAPSULE PO SCH (11:00)
[2022-05-05 11:09] VITALS: BP_SYST 118
--- NOTE | 2022-05-05 11:55 | NUR ---
DC instructions given to pt. Pt verbalized understanding. IV access on R hand, removed no signs of bleeding. Paola () will pickling solution maker the pt.
== END 2022-05-05 12:05 | disposition home health service (06) | DRG 470 ==
LOC: SMU 05-04 07:34
PROVIDERS: ADMIT Student in an Organized Health Care Education/Training Program; ATTEND Student in an Organized Health Care Education/Training Program
PROC: 0SRC0J9 Replacement of Right Knee Joint with Synthetic Substitute, Cemented, Open Approach (ICD-10-PCS; principal; 2022-05-04 10:56)
DX: M17.11 Unilateral primary osteoarthritis, right knee (principal); E78.5 Hyperlipidemia, unspecified; I10 Essential (primary) hypertension; Z20.822 Contact with and (suspected) exposure to COVID-19; E66.01 Morbid (severe) obesity due to excess calories; Z68.30 Body mass index [BMI] 30.0-30.9, adult; E86.0 Dehydration
CPT/HCPCS: 36415; 73560-TC; 80048; 81003; 85025; 87081; 88305; 88311; 96379; 97163-GP; C1713; C1776; J0131; J0690; J1885; J2001; J2250; J2274; J2405; J2704; J3490; J7030; J7060; J7120; Q0163; U0003